=== PATIENT | female | born 2000 | race African-American/Black ===

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

== ENCOUNTER 2020-01-09 22:40 | Emergency (ER) | payer OTHER ==
--- NOTE | 2020-01-09 23:23 | PDOC ---
Rapid Medical Evaluation Chief Complaint: Vaginal Bleeding Time Seen by Provider: 01/09/20 23:21 Medical Evaluation: Allergies Allergy/AdvReac Type Severity Reaction Status Date / Time No Known Allergies Allergy Verified 04/04/19 03:14 01/09/20 23:22 19 year old female reports 12 weeks c/o vaginal bleeding using 6-7 pads in a 24 hour period. PE: patient alert ox3 A; vaginal bleeding in P: labs TVUS Discharge Disposition - Diagnosis Vaginal bleeding - Referrals - Patient Instructions - Post Discharge Activity
[2020-01-09 23:27] VITALS: PULSE 60; TEMP 98.3; BMI 25.2
--- NOTE | 2020-01-10 00:19 | PDOC ---
History of Present Illness - General Chief Complaint: Vaginal Bleeding Stated Complaint: VAGINAL BLEEDING/12WKS PREG Time Seen by Provider: 01/09/20 23:21 - History of Present Illness Initial Comments: 19 yo female A1 that is 12 weeks presents with 24 hr history of vaginal bleeding. Blood flow has been constant without clots and associated with abdominal cramping. Since the onset of bleeding, she has saturated 7 pads. She was last dated 1 week ago and confirmed by ultrasound. She denies fatigue, light headedness, shortness of breath, fevers, chills, nausea, vomiting, diarrhea. Her LMP was in october where she reports normal menses without complications. Her first ended in miscarriage at 6 weeks with an unknown etiology. Past History - Medical History Allergies/Adverse Reactions: Allergies Allergy/AdvReac Type Severity Reaction Status Date / Time No Known Allergies Allergy Verified 04/04/19 03:14 Home Medications: Ambulatory Orders Cephalexin Monohydrate [Keflex -] 500 mg PO BID #14 capsule 04/04/19 Nitrofurantoin Monohyd/M-Cryst [Macrobid -] 100 mg PO BID #14 capsule 12/04/19 Cephalexin Monohydrate [Keflex -] 500 mg PO BID #14 capsule 01/10/20 Asthma: Yes COPD: No DVT: No - Reproductive History Is Patient Now?: Yes (12.5 weeks) (#): 2 Para: 0 Cervical CA: No Dysfunctional Uterine Bleeding: No Ectopic : No Endometrial CA: No Polycystic Ovaries: No Therapeutic (s) & number: Yes Tubal Ligation: No Spontaneous : 1 - Immunization History Immunization Up to Date: Yes - Psycho-Social/Smoking History Smoking Status: No Smoking History: Never smoked Have you smoked in the past 12 months: No Number of Cigarettes Smoked Daily: 0 - Substance Abuse Hx (Audit-C & DAST Scrn) How often the patient has a drink containing alcohol: Never Score: In Men: 4 or > Positive; In Women: 3 or > Positive: 0 Screen Result (Pos requires Nsg. Audit-10AR): Negative Review of Systems - Review of Systems Constitutional: No: Chills, Diaphoresis, Fever HEENTM: No: Recent change in vision, Double Vision Respiratory: No: Cough, Shortness of Breath Cardiac (ROS): No: Chest Pain, Lightheadedness, Palpitations, Syncope ABD/GI: Yes: Abdominal cramping. No: Constipated, Diarrhea, Nausea : Yes: Other (Vaginal bleeding.). No: Dysuria, Discharge, Pain Musculoskeletal: No: Joint Pain, Joint Swelling, Muscle Pain Integumentary: No: Bruising, Erythema, Lesions, Pallor Neurological: No: Numbness, Tingling, Dizziness Psychiatric: No: Anxiety, Depression, Mood Swings Endocrine: No: Intolerance to Cold, Intolerance to Heat, Increased Urine *Physical Exam - Vital Signs Last Vital Signs Temp Pulse Resp BP Pulse Ox 98.3 F 60 20 104/62 100 01/09/20 23:22 01/09/20 23:22 01/09/20 23:22 01/09/20 23:22 01/09/20 23:22 - Physical Exam General Appearance: Yes: Appropriately Dressed. No: Apparent Distress HEENT: positive: EOMI, Normal Voice Respiratory/Chest: positive: Lungs Clear, Normal Breath Sounds. negative: Respiratory Distress Cardiovascular: positive: Regular Rhythm, Regular Rate, S1, S2 Female Pelvic Exam: positive: cervical os closed, vaginal bleeding (No signs of active bleeding. No signs of clots/parts.) Gastrointestinal/Abdominal: positive: Tender (Lower abdomen ), Flat, Soft Extremity: positive: Normal Capillary Refill Integumentary: positive: Dry, Warm Neurologic: positive: Fully Oriented, Alert, Normal Mood/Affect, Normal Response ED Treatment Course - LABORATORY CBC & Chemistry Diagram: 01/10/20 00:25 Medical Decision Making - Medical Decision Making 19 yo female A1 presented with 12 week and vaginal bleeding for 24 hours. On exam, there was mild blood in a vagina with a closed cervix. TV Ultrasound confirmed an intrauterine with an active heart rate and closed os. However, US dated the at 6 weeks. B-HCG was 58k which is inconsistent with the previous recording of 42k 1 month ago. UA was positive for a UTI and she is being treated with cephalexin for 7 days. 01/10/20 02:08 Discharge - Discharge Information Problems reviewed: Yes Clinical Impression/Diagnosis: Vaginal bleeding, UTI (urinary tract infection) - Admission No - Additional Discharge Information Prescriptions: Cephalexin Monohydrate [Keflex -] 500 mg PO BID #14 capsule - Follow up/Referral - Patient Discharge Instructions Additional Instructions: You were treated for a UTI with an antibiotic you will take for 7 days. Ultrasound showed a life intrauterine with a normal amniotic fluid and amniotic sac that is approximately 6 weeks and 4 days. Exam showed a closed cervix. Please follow up with dining room attendant cafeteria for further monitoring. Return to ED if condition worsens. - Post Discharge Activity
[2020-01-10 00:46] LABS: BASO % 0.4 % (0-2.0); EOS % 1.4 % (0-4.5); HEMATOCRIT 35.1 % (32.4-45.2); HEMOGLOBIN 11.8 GM/dL (10.7-15.3); LYMPH % 32.9 % (8-40); MCH 28.5 pg (25.7-33.7); MCHC 33.5 g/dl (32.0-36.0); MEAN PLT VOLUME 8.1 fl (7.5-11.1); MONO % 4.8 % (3.8-10.2); NEUT % 60.5 % (42.8-82.8); PLATELET COUNT 264 K/MM3 (134-434); RBC 4.12 M/mm3 (3.60-5.2); RDW 14.1 % (11.6-15.6); WHITE BLOOD COUNT 5.5 K/mm3 (4.0-10.0)
[2020-01-10 01:18] LABS: EPI CELLS 31 /uL (0-25.1); HYALINE CASTS 3 /uL (0-3.1); PH,URINE 6.5 (5.0-8.0); URINE APPEARANCE CLOUDY; URINE BACTERIA 980 /uL (0-1359); URINE BILIRUBIN NEGATIVE (NEGATIVE); URINE COLOR YELLOW; URINE GLUCOSE (UA) NEGATIVE (NEGATIVE); URINE KETONE NEGATIVE (NEGATIVE); URINE LEUK ESTERASE TRACE (NEGATIVE); URINE NITRITE NEGATIVE (NEGATIVE); URINE PROTEIN NEGATIVE (NEGATIVE); URINE RBC 6 /uL (0-23.9); URINE WBC 33 /uL (0-25.8)
--- NOTE | 2020-01-10 01:55 | PDOC ---
Documentation entered by Cheri Carroll SCRIBE, acting as scribe for Colette De Jesus MD. Colette De Jesus MD: This documentation has been prepared by the Tee tay Xhesika, SCRIBE, under my direction and personally reviewed by me in its entirety. I confirm that the documentation accurately reflects all work, treatment, procedures, and medical decision making performed by me. Attending Attestation - Resident Resident Name: Kolby Pandya - ED Attending Attestation I have performed the following: I have examined & evaluated the patient, The case was reviewed & discussed with the resident, I agree w/resident's findings & plan, Exceptions are as noted - HPI HPI: 01/09/20 23:45 The patient is a 19y/o F, , currently 12 weeks , with no PMH who presents to the ED BIBA for vaginal bleeding. Pt states she used 6-7 pads in a 24 hours Allergies: NKDA - Physicial Exam PE: 01/10/20 00:13 19 yo female reports being and having vaginal bleeding head ncat abdomen soft cvs [id number] pelvic exam scant blood on speculum, no clots, no cmt extremities no edema , no erythema skin warm and dry neuro axox3, ambulatory - Medical Decision Making 01/10/20 00:15 plan bhcg, cbc,type and screen , transvaginal ultrasound 01/10/20 01:44 single hung intrauterine gestation at 6 weeks and 4 days heart rate 156 bpm, amniotic fluid normal UA UTI , start keflex plan followup with Dr Fischer Discharge - Discharge Information Problems reviewed: Yes Clinical Impression/Diagnosis: Vaginal bleeding, UTI (urinary tract infection) Condition: Stable Disposition: HOME - Additional Discharge Information Prescriptions: Cephalexin Monohydrate [Keflex -] 500 mg PO BID #14 capsule - Follow up/Referral - Patient Discharge Instructions Additional Instructions: You were treated for a UTI with an antibiotic you will take for 7 days. Ultrasound showed a life intrauterine with a normal amniotic fluid and amniotic sac that is approximately 6 weeks and 4 days. Exam showed a closed cervix. Please follow up with customer account executive for further monitoring. Return to ED if condition worsens. - Post Discharge Activity
[2020-01-10 02:35] VITALS: BP 108/64
== END 2020-01-10 02:36 | disposition home or self-care (01) ==
LOC: JER 22:40
DX: O20.9 Hemorrhage in early pregnancy, unspecified (principal); O23.41 Unspecified infection of urinary tract in pregnancy, first trimester; Z3A.12 12 weeks gestation of pregnancy
CPT/HCPCS: 36415; 76801-TC; 81003; 84702; 85025; 86850; 86900; 86901; 99284-25

== ENCOUNTER 2020-11-30 01:28 | Emergency (ER) | payer OTHER ==
[2020-11-30 01:39] VITALS: BP 148/79; PULSE 149; TEMP 97.9; BMI 29.7
[2020-11-30] MEDS ORDERED: ACETAMINOPHEN 325 MG TABLET (FP) PO ONE (01:48)
[2020-11-30] MEDS ORDERED: LORazepam 1 MG TABLET PO ONE (01:48)
[2020-11-30] MEDS ORDERED: LORazepam 2 MG/ML SDV VIAL IM ONE (01:50)
[2020-11-30] MEDS ORDERED: ACETAMINOPHEN 325 MG TABLET (FP) ONE (01:51)
[2020-11-30] MEDS ORDERED: LORazepam 2 MG/ML SDV VIAL ONE (01:52)
[2020-11-30 02:36] LABS: BASO % 0.7 % (0-2.0); EOS % 7.3 % (0-4.5); HEMATOCRIT 36.1 % (32.4-45.2); LYMPH % 53.7 % (8-40); MCH 27.6 pg (25.7-33.7); MCHC 33.2 g/dl (32.0-36.0); MEAN CELL VOLUME 82.9 fl (80-96); MONO % 7.2 % (3.8-10.2); NEUT % 31.1 % (42.8-82.8); PLATELET COUNT 293 K/MM3 (134-434); RBC 4.35 M/mm3 (3.60-5.2); WHITE BLOOD COUNT 4.4 K/mm3 (4.0-10.0)
[2020-11-30 03:02] LABS: CHLORIDE 109 mmol/L (98-107); SODIUM 141 mmol/L (136-145)
[2020-11-30 03:04] LABS: CALCIUM 8.7 mg/dL (8.5-10.1)
[2020-11-30 03:05] LABS: ALBUMIN 3.8 g/dl (3.4-5.0); ANION GAP 12 MMOL/L (8-16); BLOOD UREA NITROGEN 15.5 mg/dL (7-18); CO2 20 mmol/L (21-32); GLUCOSE,RANDOM 97 mg/dL (74-106)
[2020-11-30] MEDS ORDERED: POTASSIUM CHLORIDE TABS 20 MEQ TABLET.ER (FP) PO ONE (03:07)
[2020-11-30 03:08] LABS: SGOT/AST 15 U/L (15-37); SGPT/ALT 16 U/L (13-61)
[2020-11-30 03:10] LABS: BILIRUBIN,TOTAL 0.2 mg/dL (0.2-1); TOT PROT 7.3 g/dl (6.4-8.2)
[2020-11-30 03:13] LABS: ALK PHOS 117 U/L (45-117)
[2020-11-30] MEDS ORDERED: IBUPROFEN 600 MG TABLET (FP) PO ONE (03:16)
== END 2020-11-30 03:24 | disposition home or self-care (01) ==
LOC: JER 01:28
PROC: 3E023NZ Introduction of Analgesics, Hypnotics, Sedatives into Muscle, Percutaneous Approach (ICD-10-PCS; principal; 2020-11-30)
DX: F41.9 Anxiety disorder, unspecified (principal)
CPT/HCPCS: 36415; 80053; 84484; 85025; 93005; 93010; 99284-25